=== PATIENT | male | born 2000 | race Caucasian/White ===

== ENCOUNTER 2020-08-23 02:37 | Emergency (ER) | payer OTHER ==
[~2020-08-23] VITALS: Ht 182.9 cm; Wt 83.9 kg
[2020-08-23] MEDS ORDERED: NORCO 5-325 TA1 EAC2 PO (03:53)
[2020-08-23] MEDS ORDERED: CLEOCIN HCL300 MG PO (03:53)
[2020-08-23 04:22] VITALS: BP 172/85
== END 2020-08-23 04:22 | disposition home or self-care (01) ==
LOC: ER 02:37
DX: K04.7 Periapical abscess without sinus (principal); Z88.0 Allergy status to penicillin; Z88.8 Allergy status to other drugs, medicaments and biological substances